=== PATIENT | male | born 1980 | race Caucasian/White ===

== ENCOUNTER 2017-07-02 09:06 | Emergency (ER) | payer BC ==
[~2017-07-02] VITALS: Ht 180.3 cm; Wt 77.3 kg
[2017-07-02] MEDS ORDERED: NEURONTIN300 MG/CAP (09:26)
[2017-07-02] MEDS ORDERED: PHENERGAN 25 TA25 MG PO (09:26)
[2017-07-02] MEDS ORDERED: ECOTRIN325 M1 (09:26)
[2017-07-02] MEDS ORDERED: ACETAMINOPHEN-H1 TA1 PO (09:26)
[2017-07-02 10:00] LABS: BASO # 0.1 (0.02-0.10); EOS % 0.3 % (0.0-4.0); HEMOGLOBIN 13.5 g/dL (13.5-18.0); MEAN CELL VOLUME 84 fl (78-100); MEAN CORPUSCULAR HEMOGLOBIN 30 pg (27-31); MEAN CORPUSCULAR HGB CONC 36 g/dL (33-37); MEAN PLATELET VOLUME 8.7 fl (7.4-10.4); MONO # 0.9 (0.20-0.80); NEU # 6.4 (1.40-6.50); RED BLOOD COUNT 4.51 M/mm3 (4.20-5.60); RED CELL DISTRIBUTION WIDTH 12.4 % (11.5-14.5); WHITE BLOOD COUNT 9.4 K/mm3 (4.8-10.8)
[2017-07-02 10:02] LABS: PLATELET COUNT 513 K/mm3 (130-400)
[2017-07-02 10:08] LABS: ALBUMIN 4.3 g/dL (3.5-5.0); BUN/CREATININE RATIO 18.7 (6.0-26.0); CALCIUM 9.6 mg/dL (8.4-10.2); POTASSIUM 4.1 mmol/L (3.6-5.0); TOTAL BILIRUBIN 1.2 mg/dL (0.2-1.3); TOTAL PROTEIN 8.2 g/dL (6.3-8.2)
[2017-07-02 10:35] LABS: D-DIMER 4.04 mg/L FEU (0.15-0.50)
[2017-07-02 13:33] VITALS: BP 142/90
== END 2017-07-02 12:53 | disposition short-term general hospital (02) ==
LOC: ED 09:06
PROVIDERS: Physician Assistant
DX: M79.604 Pain in right leg (principal); Z98.890 Other specified postprocedural states; R11.2 Nausea with vomiting, unspecified; Z87.891 Personal history of nicotine dependence
CPT/HCPCS: J1885; J2405; J7120

== ENCOUNTER → 2017-09-21 | Outpatient (CLI) | payer BC ==
[~2017-09-21] MED LIST: ACETAMINOPHEN-H1 TA1 PO; ECOTRIN325 M1; NEURONTIN300 MG/CAP; PHENERGAN 25 TA25 MG PO
[2017-09-21 11:25] LABS: PROTHROMBIN TIME 10.3 SECONDS (9.0-12.0)
[2017-09-21 11:29] LABS: ALBUMIN 4.7 g/dL (3.5-5.0); BUN/CREATININE RATIO 12.1 (6.0-26.0); CALCIUM 9.3 mg/dL (8.4-10.2); POTASSIUM 4.5 mmol/L (3.6-5.0); TOTAL PROTEIN 8.4 g/dL (6.3-8.2)
[2017-09-21 11:42] LABS: EOS # 0.1 (0.04-0.40); HEMATOCRIT 46.4 % (42.0-52.0); HEMOGLOBIN 16.1 g/dL (13.5-18.0); LYMPH# 2.3 (1.50-4.00); MEAN CELL VOLUME 86 fl (78-100); MEAN CORPUSCULAR HEMOGLOBIN 30 pg (27-31); MEAN CORPUSCULAR HGB CONC 35 g/dL (33-37); MEAN PLATELET VOLUME 9.1 fl (7.4-10.4); MONO # 0.5 (0.20-0.80); PLATELET COUNT 310 K/mm3 (130-400); RED CELL DISTRIBUTION WIDTH 13.1 % (11.5-14.5); WHITE BLOOD COUNT 5.8 K/mm3 (4.8-10.8)
[2017-09-21 13:27] LABS: ERYTHROCYTE SEDIMENTATION RATE 4 mm/hr (0-15)
[2017-09-22 02:42] LABS: C-REACTIVE PROTEIN XXX
[2017-09-23 01:42] LABS: ANA SCREEN with REFLEX Negative (Negative)
== END ==
LOC: LAB 10:26
PROVIDERS: Family Medicine
DX: Z00.00 Encounter for general adult medical examination without abnormal findings (principal); R53.83 Other fatigue; M54.5 Low back pain; M10.9 Gout, unspecified; Z72.0 Tobacco use; R79.89 Other specified abnormal findings of blood chemistry

== ENCOUNTER 2018-09-23 17:32 | Emergency (ER) | payer BC ==
[~2018-09-23] VITALS: Ht 180.3 cm; Wt 75.0 kg
[2018-09-23] MEDS ORDERED: MELATONIN10 M2 PO (17:51)
[2018-09-23] MEDS ORDERED: ZOFRAN4 M2 PO (17:51)
[2018-09-23 20:03] VITALS: BP 125/85
== END 2018-09-23 20:03 ==
LOC: ED 17:32
DX: S63.501A Unspecified sprain of right wrist, initial encounter (principal); F17.210 Nicotine dependence, cigarettes, uncomplicated; Z98.890 Other specified postprocedural states; W22.01XA Walked into wall, initial encounter

== ENCOUNTER → 2019-12-22 | Outpatient (CLI) | payer BC ==
[~2019-12-22] MED LIST changes: +MELATONIN10 M2 PO; +ZOFRAN4 M2 PO
== END ==
LOC: LAB 08:30
DX: R05 Cough (principal); R51.9 Headache, unspecified; R19.7 Diarrhea, unspecified; R11.10 Vomiting, unspecified; Z20.828 Contact with and (suspected) exposure to other viral communicable diseases

== ENCOUNTER → 2019-12-29 | Outpatient (CLI) | payer BC ==
[2019-12-29 18:08] LABS: ALBUMIN 4.6 g/dL (3.5-5.0); POTASSIUM 4.2 mmol/L (3.5-5.1)
[2019-12-29 18:09] LABS: CALCIUM 9.3 mg/dL (8.3-10.5)
[2019-12-29 18:10] LABS: TOTAL PROTEIN 7.2 g/dL (6.4-8.3)
[2019-12-29 18:12] LABS: TOTAL BILIRUBIN 0.7 mg/dL (0.2-1.2)
== END ==
LOC: LAB 17:42
PROVIDERS: Family Medicine
DX: Z00.00 Encounter for general adult medical examination without abnormal findings (principal); H91.93 Unspecified hearing loss, bilateral; F51.04 Psychophysiologic insomnia; M19.90 Unspecified osteoarthritis, unspecified site; R11.0 Nausea

== ENCOUNTER → 2020-03-05 | Outpatient (CLI) | payer BC ==
[2020-03-05 11:02] LABS: LIPASE 21 U/L (8-78)
[2020-03-05 23:41] LABS: CORTISOL, AM (0800) 8 ug/dL (3-20); FOLLICLE STIMULATING HORMONE 9.7 mIU/mL (1.0-12.0); LUTENIZING HORMONE 7.7 mIU/mL (0.6-12.1)
[2020-03-08 06:40] LABS: BAKERS YEAST ALLERGEN COUNT <0.10 kU/L (()); CORN ALLERGEN COUNT <0.10 kU/L (()); EGG WHITE ALLERGEN COUNT <0.10 kU/L (()); MILK ALLERGEN COUNT <0.10 kU/L (()); ORANGE ALLERGEN COUNT <0.10 kU/L (()); PEANUT ALLERGEN COUNT <0.10 kU/L (()); RICE ALLERGEN COUNT <0.10 kU/L (()); SOYBEAN ALLERGEN COUNT <0.10 kU/L (()); STRAWBERRY ALLERGEN COUNT <0.10 kU/L (()); TOMATO ALLERGEN COUNT <0.10 kU/L (()); WHEAT ALLERGEN COUNT <0.10 kU/L (())
[2020-03-11 14:11] LABS: PROLACTIN AMS 8.9 ng/mL (3.5-19.4)
[2020-03-11 22:35] LABS: ADRENOCORTICOTROPIC HORMONE 16 pg/mL (5-27)
== END ==
LOC: LAB 10:05
PROVIDERS: Family Medicine
DX: E23.7 Disorder of pituitary gland, unspecified (principal); R23.2 Flushing

== ENCOUNTER → 2020-03-25 | Outpatient (CLI) | payer BC | LOC: LAB 10:17 | DX: R19.7 Diarrhea, unspecified (principal) ==

== ENCOUNTER → 2020-04-10 | Outpatient (CLI) | payer BC | LOC: RAD 11:00 | DX: R42 Dizziness and giddiness (principal) ==

== ENCOUNTER → 2021-01-13 | Outpatient (CLI) | payer BC | LOC: LAB 14:43 | DX: Z20.822 Contact with and (suspected) exposure to COVID-19 (principal) ==

== ENCOUNTER → 2022-03-27 | Outpatient (CLI) | payer BC | LOC: CARDREHAB 09:00 | DX: R07.9 Chest pain, unspecified (principal) | CPT/HCPCS: A9500 ==